=== PATIENT | female | born 2000 | race Caucasian/White ===

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

== ENCOUNTER 2021-04-09 08:41 | Emergency (ER) | payer OTHER ==
--- OUTSIDE RECORDS SUMMARY | 2021-04-09 08:47 | XMS REPORT | Continuity of Care Document ---
:2001 Author Organization [facility] Address [facility] [place] [address] Care Team Providers Name Role Phone ONIEL Attending Clinician Unavailable Provider, Urgent Care Attending Clinician Unavailable Ernie BHATT Attending Clinician ERNIE Attending Clinician Unavailable Doctor Unassigned, Name Attending Clinician Unavailable Dian Coe MD Attending Clinician Dian COE Attending Clinician Unavailable PARISH FAGAN Attending Clinician Unavailable Oniel MONTALVO Attending Clinician Parish Fagan MD Attending Clinician Pob, Lab Main Attending Clinician Unavailable 2, Lab Attending Clinician Unavailable Edwige ROBERTO, M Attending Clinician Unavailable Pcp, Does Not Have A Attending Clinician Nasir FRANCO Attending Clinician Maravilla Attending Clinician Nurse, Women's Health Attending Clinician Unavailable Payers Payer Name Policy Type Policy Number Effective Date Expiration Date Juan A [employer] [id number] 2014 HEALTH 00:00:00 Problems Condition Condition Condition Status Onset Resolution Last Treating Co mments Source Name Details Category Date Date Treatment Clinician Date High-risk High-risk Disease Active Uni vers 4-15 ity of in first in first 00:00: [place] trimester trimester 00 Medi mtat Branch 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 [place] Medical disorder disorder Branch (ADHD), (ADHD), 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 9-13 it y of disorder disorder 00:00: [place] with with 00 Medical single single Branch episode, episode, in full in full remission remission Obstructiv Obstructiv Disease Active U nivers e sleep e sleep 7-15 ity of apnea apnea 00:00: [place] (adult) (adult) 00 Medical (pediatric (pediatric Br anch ) ) Primary Primary Disease Active Univers central central 7-15 ity of sleep sleep 00:00: [place] apnea apnea 00 Medical Branch Sleep Sleep Disease Active 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 00:00: [address] Branch Allergies, Adverse Reactions, Alerts Allergy Allergy Status Severity Reaction(s) Onset Inactive Treating Comm ents Source Name Type Date Date Clinician NO KNOWN Drug Active Univers ALLERGIE Class ity of S [facility] Social History Social Habit Start Date Stop Date Quantity Comments Source ASSERTION 2019-07-01 University of 00:00:00 [facility] Exposure to Not sure [facility] SARS-CoV-2 [facility] (event) [place] [facility] [place] [facility] Tobacco use and 2020-04-28 2020-04-28 Never used Universit y of exposure 00:00:00 00:00:00 [facility] Alcohol intake 2020-04-28 2020-04-28 Current [place] of 00:00:00 00:00:00 non-drinker of [facility] alcohol Branch (finding) Alcohol Comment 2017-03-12 2017-03-12 hx of alcohol Univer sity of 00:00:00 00:00:00 use. [facility] Smoking Status Start Date Stop Date Source Never smoker [facility] Former smoker 2019-08-06 00:00:00 2019-08-06 00:00:00 Universi ty of [facility] Medications Ordered Filled Start Stop Current Ordering Indication Dosage Frequency Signature Comments Components Source Medication Medication Date Date Medication? Clinician (SIG) Name Name Nitrofurant 2019-05 2020- No [id number] 100mg Take 1 Univers oin&Nit. 205-04 capsule by ity of [place] 00:00: 05:59 mouth 2 Dharmesh as (MACROBID) 00 :00 (two) Medical 100 mg times Branch capsule daily for 5 days. fluconazole 2020- No [id number] 150mg Take 1 Univers 150 mg 01-19- tablet by ity of tablet 00:00[place] 04[place] for 1 Medical dose. Branch fluconazole 2019-0 2020- No [id number] 150mg Take 1 Univers 150 mg 01-19 tablet by ity of tablet 00:00: 04:59 [place] 00 :[place] now for 1 Medical dose. Branch TRI-SPRINTE 2019-0 Yes Univer s C 9-04 ity of 0.18/0.215/ 00:00: [place] 0.25 mg-35 00 Medical mcg (28) Branch per tablet TRI-SPRINTE 2019-0 Yes Univer s C 9-04 ity of 0.18/0.215/ 00:00: [place] 0.25 mg-35 00 Medical mcg (28) Branch per tablet TRI-SPRINTE 2019-0 Yes Univer s C 9-04 ity of 0.18/0.215/ 00:00: [place] 0.25 mg-35 00 Medical mcg (28) Branch per tablet TRI-SPRINTE 2019-0 Yes Univer s C 9-04 ity of 0.18/0.215/ 00:00: [place] 0.25 mg-35 00 Medical mcg (28) Branch per tablet TRI-SPRINTE 2020-0 Yes Univer s C 9-04 ity of 0.18/0.215/ 00:00: [place] 0.25 mg-35 00 Medical mcg (28) Branch per tablet TRI-SPRINTE 2019-0 Yes Univer s C 9-04 ity of 0.18/0.215/ 00:00: [place] 0.25 mg-35 00 Medical mcg (28) Branch per tablet metroNIDAZO 2019-0 Yes [id number] 500mg Take 1 Univers LE 500 mg 4-16 tablet by ity o f tablet 00:00: mouth [place] 00 every 12 Medical (twelve) Branch hours. metroNIDAZO 2020-0 Yes [id number] 500mg Take 1 Univers LE 500 mg 4-16 tablet by ity o f tablet 00:00: mouth [place] 00 every 12 Medical (twelve) Branch hours. metroNIDAZO 2020-0 Yes [id number] 500mg Take 1 Univers LE 500 mg 4-16 tablet by ity o f tablet 00:00: mouth [place] 00 every 12 Medical (twelve) Branch hours. metroNIDAZO 2019-0 Yes [id number] 500mg Take 1 Univers LE 500 mg 4-16 tablet by ity o f tablet 00:00: mouth [place] 00 every 12 Medical (twelve) Branch hours. metroNIDAZO 2020-0 Yes [id number] 500mg Take 1 Univers LE 500 mg 4-16 tablet by ity o f tablet 00:00: mouth [place] 00 every 12 Medical (twelve) Branch hours. metroNIDAZO 2020-0 Yes [id number] 500mg Take 1 Univers LE 500 mg 4-16 tablet by ity o f tablet 00:00: mouth [place] 00 every 12 Medical (twelve) Branch hours. metroNIDAZO 2020-0 Yes [id number] 500mg Take 1 Univers LE 500 mg 4-16 tablet by ity o f tablet 00:00: mouth [place] 00 every 12 Medical (twelve) Branch hours. metroNIDAZO 2020-0 Yes [id number] 500mg Take 1 Univers LE 500 mg 4-16 tablet by ity o f tablet 00:00: mouth [place] 00 every 12 Medical (twelve) Branch hours. metroNIDAZO 2020-0 Yes [id number] 500mg Take 1 Univers LE 500 mg 4-16 tablet by ity o f tablet 00:00: mouth [place] 00 every 12 Medical (twelve) Branch hours. metroNIDAZO 2020-0 Yes [id number] 500mg Take 1 Univers LE 500 mg 4-16 tablet by ity o f tablet 00:00: mouth [place] 00 every 12 Medical (twelve) Branch hours. albuterol 2019-0 Yes [id number] 2{puff} Inhale 2 Univers 90 4-15 Puffs ity of mcg/actuati 00:00: every 6 Dharmesh as on inhaler 00 (six) Medical hours as Branch needed for Wheezing, Shortness of Breath, Bronchospa sm or Chest tightness. PNV 2019-0 Yes [id number] Take 1 Univers 102-iron-fo 4-15 TAB-CAP/M2 it y of late 00:00: by mouth [place] 1-dss-dha 00 daily. Medical (VITAFOL Branch FE+, WITH DOCUSATE,) 90 mg iron-1 mg -50 mg-200 mg Cap albuterol 2019-0 Yes [id number] 2{puff} Inhale 2 Univers 90 4-15 Puffs ity of mcg/actuati 00:00: every 6 Dharmesh as on inhaler 00 (six) Medical hours as Branch needed for Wheezing, Shortness of Breath, Bronchospa sm or Chest tightness. PNV 2020-0 Yes [id number] Take 1 Univers 102-iron-fo 4-15 TAB-CAP/M2 it y of late 00:00: by mouth [address] daily. Medical (VITAFOL Branch FE+, WITH DOCUSATE,) 90 mg iron-1 mg -50 mg-200 mg Cap albuterol 2020-0 Yes [id number] 2{puff} Inhale 2 Univers 90 4-15 Puffs ity of mcg/actuati 00:00: every 6 Dharmesh as on inhaler 00 (six) Medical hours as Branch needed for Wheezing, Shortness of Breath, Bronchospa sm or Chest tightness. PNV 2020-0 Yes [id number] Take 1 Univers 102-iron-fo 4-15 TAB-CAP/M2 it y of late 00:00: by mouth [address] daily. Medical (VITAFOL Branch FE+, WITH DOCUSATE,) 90 mg iron-1 mg -50 mg-200 mg Cap albuterol 2020-0 Yes [id number] 2{puff} Inhale 2 Univers 90 4-15 Puffs ity of mcg/actuati 00:00: every 6 Dharmesh as on inhaler 00 (six) Medical hours as Branch needed for Wheezing, Shortness of Breath, Bronchospa sm or Chest tightness. PNV 2020-0 Yes [id number] Take 1 Univers 102-iron-fo 4-15 TAB-CAP/M2 it y of late 00:00: by mouth [address] daily. Medical (VITAFOL Branch FE+, WITH DOCUSATE,) 90 mg iron-1 mg -50 mg-200 mg Cap albuterol 2020-0 Yes [id number] 2{puff} Inhale 2 Univers 90 4-15 Puffs ity of mcg/actuati 00:00: every 6 Dharmesh as on inhaler 00 (six) Medical hours as Branch needed for Wheezing, Shortness of Breath, Bronchospa sm or Chest tightness. PNV 2020-0 Yes [id number] Take 1 Univers 102-iron-fo 4-15 TAB-CAP/M2 it y of late 00:00: by mouth [address] daily. Medical (VITAFOL Branch FE+, WITH DOCUSATE,) 90 mg iron-1 mg -50 mg-200 mg Cap albuterol 2020-0 Yes [id number] 2{puff} Inhale 2 Univers 90 4-15 Puffs ity of mcg/actuati 00:00: every 6 Dharmesh as on inhaler 00 (six) Medical hours as Branch needed for Wheezing, Shortness of Breath, Bronchospa sm or Chest tightness. PNV 2020-0 Yes [id number] Take 1 Univers 102-iron-fo 4-15 TAB-CAP/M2 it y of late 00:00: by mouth [address] daily. Medical (VITAFOL Branch FE+, WITH DOCUSATE,) 90 mg iron-1 mg -50 mg-200 mg Cap albuterol 2020-0 Yes [id number] 2{puff} Inhale 2 Univers 90 4-15 Puffs ity of mcg/actuati 00:00: every 6 Dharmesh as on inhaler 00 (six) Medical hours as Branch needed for Wheezing, Shortness of Breath, Bronchospa sm or Chest tightness. PNV 2020-0 Yes [id number] Take 1 Univers 102-iron-fo 4-15 TAB-CAP/M2 it y of late 00:00: by mouth [address] daily. Medical (VITAFOL Branch FE+, WITH DOCUSATE,) 90 mg iron-1 mg -50 mg-200 mg Cap albuterol 2020-0 Yes [id number] 2{puff} Inhale 2 Univers 90 4-15 Puffs ity of mcg/actuati 00:00: every 6 Dharmesh as on inhaler 00 (six) Medical hours as Branch needed for Wheezing, Shortness of Breath, Bronchospa sm or Chest tightness. PNV 2020-0 Yes [id number] Take 1 Univers 102-iron-fo 4-15 TAB-CAP/M2 it y of late 00:00: by mouth [address] daily. Medical (VITAFOL Branch FE+, WITH DOCUSATE,) 90 mg iron-1 mg -50 mg-200 mg Cap albuterol 2020-0 Yes [id number] 2{puff} Inhale 2 Univers 90 4-15 Puffs ity of mcg/actuati 00:00: every 6 Dharmseh as on inhaler 00 (six) Medical hours as Branch needed for Wheezing, Shortness of Breath, Bronchospa sm or Chest tightness. PNV 2020-0 Yes [id number] Take 1 Univers 102-iron-fo 4-15 TAB-CAP/M2 it y of late 00:00: by mouth [address] daily. Medical (VITAFOL Branch FE+, WITH DOCUSATE,) 90 mg iron-1 mg -50 mg-200 mg Cap albuterol 2020-0 Yes [id number] 2{puff} Inhale 2 Univers 90 4-15 Puffs ity of mcg/actuati 00:00: every 6 Dharmesh as on inhaler 00 (six) Medical hours as Branch needed for Wheezing, Shortness of Breath, Bronchospa sm or Chest tightness. PNV 2020-0 Yes [id number] Take 1 Univers 102-iron-fo 4-15 TAB-CAP/M2 it y of late 00:00: by mouth [address] daily. Medical (VITAFOL Branch FE+, WITH DOCUSATE,) 90 mg iron-1 mg -50 mg-200 mg Cap albuterol 2020-0 Yes [id number] 2{puff} Inhale 2 Univers 90 4-15 Puffs ity of mcg/actuati 00:00: every 6 Dharmesh as on inhaler 00 (six) Medical hours as Branch needed for Wheezing, Shortness of Breath, Bronchospa sm or Chest tightness. PNV 2020-0 Yes [id number] Take 1 Univers 102-iron-fo 4-15 TAB-CAP/M2 it y of late 00:00: by mouth [address] daily. Medical (VITAFOL Branch FE+, WITH DOCUSATE,) 90 mg iron-1 mg -50 mg-200 mg Cap albuterol 2020-0 Yes [id number] 2{puff} Inhale 2 Univers 90 4-15 Puffs ity of mcg/actuati 00:00: every 6 Dharmesh as on inhaler 00 (six) Medical hours as Branch needed for Wheezing, Shortness of Breath, Bronchospa sm or Chest tightness. PNV 2020-0 Yes [id number] Take 1 Univers 102-iron-fo 4-15 TAB-CAP/M2 it y of late 00:00: by mouth [address] daily. Medical (VITAFOL Branch FE+, WITH DOCUSATE,) 90 mg iron-1 mg -50 mg-200 mg Cap cefdinir 2019-0 2020- No [id number] 300mg Take 1 U nivers 300 mg 3-25 04-05 capsule by ity of capsule 00:00: 04:59 mouth [place] 00 :00 every 24 Medical ([facility] Branch ur) hours for 10 days. cefdinir 2020-0 2020- No [id number] 300mg Take 1 U nivers 300 mg 3-25 04-05 capsule by ity of capsule 00:00: 04:59 mouth [place] 00 :00 every 24 Medical ([facility] Branch ur) hours for 10 days. cefdinir 2019-0 2020- No [id number] 300mg Take 1 U nivers 300 mg 3-25 04-05 capsule by ity of capsule 00:00: 04:59 mouth [place] 00 :00 every 24 Medical ([facility] Branch ur) hours for 10 days. cefdinir 2020-0 2020- No [id number] 300mg Take 1 U nivers 300 mg 3-25 04-05 capsule by ity of capsule 00:00: 04:59 mouth [place] 00 :00 every 24 Medical ([facility] Branch ur) hours for 10 days. cefdinir 2019-0 2020- No [id number] 300mg Take 1 U nivers 300 mg 3-25 04-05 capsule by ity of capsule 00:00: 04:59 mouth [place] 00 :00 every 24 Medical ([facility] Branch ur) hours for 10 days. cefdinir 2020-0 2020- No [id number] 300mg Take 1 U nivers 300 mg 3-25 04-05 capsule by ity of capsule 00:00: 04:59 mouth [place] 00 :00 every 24 Medical ([facility] Branch ur) hours for 10 days. cefdinir 2020-0 2020- No [id number] 300mg Take 1 U nivers 300 mg 3-25 04-05 capsule by ity of capsule 00:00: 04:59 mouth [place] 00 :00 every 24 Medical ([facility] Branch ur) hours for 10 days. estradiol 2019-0 Yes by Univers cypionate 8-09 Intramuscu ity of (DEPO-ESTRA 13:05: lar route. [place] DIOL IM) [address] [place] [address] Branch estradiol 2019-0 Yes by Univers cypionate 8-09 Intramuscu ity of (DEPO-ESTRA 13:05: lar route. [place] DIOL IM) 52 Medical Branch estradiol 2019-0 Yes by Univers cypionate 8-09 Intramuscu ity of (DEPO-ESTRA 13:05: lar route. [place] DIOL IM) 52 Medical Branch estradiol 2019-0 Yes by Univers cypionate 8-09 Intramuscu ity of (DEPO-ESTRA 13:05: lar route. [place] DIOL IM) 52 Medical Branch estradiol 2019-0 Yes by Univers cypionate 8-09 Intramuscu ity of (DEPO-ESTRA 13:05: lar route. [place] DIOL IM) 52 Medical Branch estradiol 2019-0 Yes by Univers cypionate 8-09 Intramuscu ity of (DEPO-ESTRA 13:05: lar route. [place] DIOL IM) 52 Medical Branch estradiol 2019-0 Yes by Univers cypionate 8-09 Intramuscu ity of (DEPO-ESTRA 13:05: lar route. [place] DIOL IM) 52 Medical Branch estradiol 2019-0 Yes by Univers cypionate 8-09 Intramuscu ity of (DEPO-ESTRA 13:05: lar route. [place] DIOL IM) 52 Medical Branch estradiol 2019-0 Yes by Univers cypionate 8-09 Intramuscu ity of (DEPO-ESTRA 13:05: lar route. [place] DIOL IM) 52 Medical Branch estradiol 2019-0 Yes by Univers cypionate 8-09 Intramuscu ity of (DEPO-ESTRA 13:05: lar route. [place] DIOL IM) 52 Medical Branch estradiol 2019-0 Yes by Univers cypionate 8-09 Intramuscu ity of (DEPO-ESTRA 13:05: lar route. [place] DIOL IM) 52 Medical Branch estradiol 2019-0 Yes by Univers cypionate 8-09 Intramuscu ity of (DEPO-ESTRA 13:05: lar route. [place] DIOL IM) 52 Medical Branch estradiol 2019-0 Yes by Univers cypionate 8-09 Intramuscu ity of (DEPO-ESTRA 13:05: lar route. [place] DIOL IM) 52 Medical Branch estradiol 2019-0 Yes by Univers cypionate 8-09 Intramuscu ity of (DEPO-ESTRA 13:05: lar route. [place] DIOL IM) 52 Medical Branch estradiol 2019-0 Yes by Univers cypionate 8-09 Intramuscu ity of (DEPO-ESTRA 13:05: lar route. [place] DIOL IM) 52 Medical Branch estradiol 2019-0 Yes by Univers cypionate 8-09 Intramuscu ity of (DEPO-ESTRA 13:05: lar route. [place] DIOL IM) 52 Medical Branch estradiol 2019-0 Yes by Univers cypionate 8-09 Intramuscu ity of (DEPO-ESTRA 13:05: lar route. [place] DIOL IM) 52 Medical Branch estradiol 2019-0 Yes by Univers cypionate 8-09 Intramuscu ity of (DEPO-ESTRA 13:05: lar route. [place] DIOL IM) 52 Medical Branch estradiol 2019-0 Yes by Univers cypionate 8-09 Intramuscu ity of (DEPO-ESTRA 13:05: lar route. [place] DIOL IM) 52 Medical Branch estradiol 2019-0 Yes by Univers cypionate 8-09 Intramuscu ity of (DEPO-ESTRA 13:05: lar route. [place] DIOL IM) 52 Medical Branch estradiol 2019-0 Yes by Univers cypionate 8-09 Intramuscu ity of (DEPO-ESTRA 13:05: lar route. [place] DIOL IM) 52 Medical Branch estradiol 2019-0 Yes by Univers cypionate 8-09 Intramuscu ity of (DEPO-ESTRA 13:05: lar route. [place] DIOL IM) 52 Medical Branch estradiol 2019-0 Yes by Univers cypionate 8-09 Intramuscu ity of (DEPO-ESTRA 13:05: lar route. [place] DIOL IM) 52 Medical Branch estradiol 2019-0 Yes by Univers cypionate 8-09 Intramuscu ity of (DEPO-ESTRA 13:05: lar route. [place] DIOL IM) 52 Medical Branch estradiol 2019-0 Yes by Univers cypionate 8-09 Intramuscu ity of (DEPO-ESTRA 13:05: lar route. [place] DIOL IM) 52 Medical Branch estradiol 2019-0 Yes by Univers cypionate 8-09 Intramuscu ity of (DEPO-ESTRA 13:05: lar route. [place] DIOL IM) 52 Medical Branch estradiol 2019-0 Yes by Univers cypionate 8-09 Intramuscu ity of (DEPO-ESTRA 13:05: lar route. [place] DIOL IM) 52 Medical Branch estradiol 2019-0 Yes by Univers cypionate 8-09 Intramuscu ity of (DEPO-ESTRA 13:05: lar route. [place] DIOL IM) 52 Medical Branch estradiol 2019-0 Yes by Univers cypionate 8-09 Intramuscu ity of (DEPO-ESTRA 13:05: lar route. [place] DIOL IM) 52 Medical Branch estradiol Yes by Univers cypionate 8-09 Intramuscu ity of (DEPO-ESTRA 13:05: lar route. [place] DIOL IM) 52 Medical Branch estradiol Yes by Univers cypionate 8-09 Intramuscu ity of (DEPO-ESTRA 13:05: lar route. [place] DIOL IM) 52 Medical Branch estradiol Yes by Univers cypionate 809 Intramuscu ity of (DEPO-ESTRA 13:05: lar route. [place] DIOL IM) 52 Medical Branch medroxyPROG 2020- No 150mg Univ ers ESTERone -09 11- ity of (DEPO-PROVE 15:45: 15:44 [place] RA) 00 :00 Medical injection Branch 150 mg medroxyPROG 2020- No 150mg Univ ers ESTERone -09 11- ity of (DEPO-PROVE 15:45: 15:44 [place] RA) 00 :00 Medical injection Branch 150 mg medroxyPROG 2020- No 150mg Univ ers ESTERone -09 11- ity of (DEPO-PROVE 15:45: 15:44 [place] RA) 00 :00 Medical injection Branch 150 mg medroxyPROG 2018-0 2020- No 150mg Univ ers ESTERone -09 11- ity of (DEPO-PROVE 15:45: 15:44 [place] RA) 00 :00 Medical injection Branch 150 mg medroxyPROG 2018- 2020- No 150mg Univ ers ESTERone -09 11- ity of (DEPO-PROVE 15:45: 15:44 [place] RA) 00 :00 Medical injection Branch 150 mg medroxyPROG 2018-0 2020- No 150mg Univ ers ESTERone -09 11- ity of (DEPO-PROVE 15:45: 15:44 [place] RA) 00 :00 Medical injection Branch 150 mg medroxyPROG 2018-0 2020- No 150mg Univ ers ESTERone -09 11- ity of (DEPO-PROVE 15:45: 15:44 [place] RA) 00 :00 Medical injection Branch 150 mg medroxyPROG 2018-0 2020- No 150mg Univ ers ESTERone 12-09 ity of (DEPO-PROVE 15:45: 15:44 [place] RA) 00 :00 Medical injection Branch 150 mg medroxyPROG 2018- 2020- No 150mg Univ ers ESTERone 12-09 ity of (DEPO-PROVE 15:45: 15:44 [place] RA) 00 :00 Medical injection Branch 150 mg medroxyPROG 2018- 2020- No 150mg Univ ers ESTERone 12-09 ity of (DEPO-PROVE 15:45: 15:44 [place] RA) 00 :00 Medical injection Branch 150 mg medroxyPROG 2018- 2020- No 150mg Univ ers ESTERone 12-09 ity of (DEPO-PROVE 15:45: 15:44 [place] RA) 00 :00 Medical injection Branch 150 mg medroxyPROG 2018-2019- No 150mg 150 mg, U nivers ESTERone 12-09 Intramuscu ity of (DEPO-PROVE 15:45: 15:44 lar, [place] RA) 00 :00 [id number], Medical injection 4 doses, Branch 150 mg First dose on Sun12/09/18 at 1045, Last dose on Sun08/18/19 at 1045, Routine medroxyPROG 2018-2019- No 150mg Univ ers ESTERone 12-09 ity of (DEPO-PROVE 15:45: 15:44 [place] RA) 00 :00 Medical injection Branch 150 mg medroxyPROG 2018-0 2020- No 150mg Univ ers ESTERone 12-09 ity of (DEPO-PROVE 15:45: 15:44 [place] RA) 00 :00 Medical injection Branch 150 mg medroxyPROG 2018-0 2020- No 150mg Univ ers ESTERone 12-09 ity of (DEPO-PROVE 15:45: 15:44 [place] RA) 00 :00 Medical injection Branch 150 mg medroxyPROG 2018-0 2020- No 150mg Univ ers ESTERone 12-09 ity of (DEPO-PROVE 15:45: 15:44 [place] RA) 00 :00 Medical injection Branch 150 mg medroxyPROG 2018-0 2020- No 150mg Univ ers ESTERone 12-09 ity of (DEPO-PROVE 15:45: 15:44 [place] RA) 00 :00 Medical injection Branch 150 mg medroxyPROG 2018-0 2020- No 150mg Univ ers ESTERone 12-09 ity of (DEPO-PROVE 15:45: 15:44 [place] RA) 00 :00 Medical injection Branch 150 mg medroxyPROG 2018-0 2020- No 150mg Univ ers ESTERone 12-09 ity of (DEPO-PROVE 15:45: 15:44 [place] RA) 00 :00 Medical injection Branch 150 mg medroxyPROG 2018-0 2020- No 150mg Univ ers ESTERone 12-09 ity of (DEPO-PROVE 15:45: 15:44 [place] RA) 00 :00 Medical injection Branch 150 mg medroxyPROG 2018-0 2020- No 150mg Univ ers ESTERone 12-09 ity of (DEPO-PROVE 15:45: 15:44 [place] RA) 00 :00 Medical injection Branch 150 mg medroxyPROG 2018-0 2020- No 150mg Univ ers ESTERone 12-09 ity of (DEPO-PROVE 15:45: 15:44 [place] RA) 00 :00 Medical injection Branch 150 mg medroxyPROG 2018-0 2020- No 150mg Univ ers ESTERone 12-09 ity of (DEPO-PROVE 15:45: 15:44 [place] RA) 00 :00 Medical injection Branch 150 mg medroxyPROG 2018-0 2020- No 150mg Univ ers ESTERone 12-09 ity of (DEPO-PROVE 15:45: 15:44 [place] RA) 00 :00 Medical injection Branch 150 mg medroxyPROG 2018-0 2020- No 150mg Univ ers ESTERone 12-09 ity of (DEPO-PROVE 15:45: 15:44 [place] RA) 00 :00 Medical injection Branch 150 mg medroxyPROG 2018-0 2020- No 150mg Univ ers ESTERone 12-09 ity of (DEPO-PROVE 15:45: 15:44 [place] RA) 00 :00 Medical injection Branch 150 mg medroxyPROG 2018-0 2020- No 150mg Univ ers ESTERone 12-09 ity of (DEPO-PROVE 15:45: 15:44 [place] RA) 00 :00 Medical injection Branch 150 mg medroxyPROG 2018-0 2020- No 150mg Univ ers ESTERone 12-09 ity of (DEPO-PROVE 15:45: 15:44 [place] RA) 00 :00 Medical injection Branch 150 mg medroxyPROG 2019- 2020- No 150mg Univ ers ESTERone 12-09 ity of (DEPO-PROVE 15:45: 15:44 [place] RA) 00 :00 Medical injection Branch 150 mg estradiol 2019- Yes by Univers cypionate 2-01 Intramuscu ity of (DEPO-ESTRA 17:16: lar route. [place] DIOL IM) 35 Medical Branch estradiol 2019 Yes by Univers cypionate 2-01 Intramuscu ity of (DEPO-ESTRA 17:16: lar route. [place] DIOL IM) 35 Medical Branch estradiol 2018- Yes by Univers cypionate 2-01 Intramuscu ity of (DEPO-ESTRA 17:16: lar route. [place] DIOL IM) Medical Branch Immunizations Ordered Immunization Filled Date Status Comments Sour ce Name Immunization Name HPV 2014-10-26 Completed University of 00:00:00 [facility] HPV 2014-10-26 Completed University of 00:00:00 [place] [facility] HPV 2014-10-26 Completed University of 00:00:00 [place] [facility] HPV 2014-10-26 Completed University of 00:00:00 [place] [facility] HPV 2014-10-26 Completed University of 00:00:00 [place] [facility] HPV 2014-10-26 Completed University of 00:00:00 [place] [facility] HPV 2013-12-24 Completed University of 00:00:00 [facility] Branch HPV 2013-12-24 Completed University of 00:00:00 [place] [facility] HPV 2013-12-24 Completed University of 00:00:00 [place] [facility] HPV 2013-12-24 Completed University of 00:00:00 [place] [facility] HPV 2013-12-24 Completed University of 00:00:00 [place] [facility] HPV 2013-12-24 Completed University of 00:00:00 [place] [facility] HPV 2013-10-23 Completed University of 00:00:00 [place] [facility] HPV 2013-10-23 Completed University of 00:00:00 [place] [facility] HPV 2013-10-23 Completed University of 00:00:00 [place] [facility] HPV 2013-10-23 Completed University of 00:00:00 [place] [facility] HPV 2013-10-23 Completed University of 00:00:00 [place] [facility] HPV 2013-10-23 Completed University of 00:00:00 [facility] Meningococcal 2012-09-19 Completed University of Polysaccharide (groups 00:00:00 [place] [facility] A, C, Y and W-135) Branch conjugate vaccine (MCV4P) TDAP 2012-09-19 Completed University of 00:00:00 [facility] Meningococcal 2012-09-19 Completed University of Polysaccharide (groups 00:00:00 [place] [facility] A, C, Y and W-135) Branch conjugate vaccine (MCV4P) TDAP 2012-09-19 Completed University of 00:00:00 [facility] Meningococcal 2012-09-19 Completed University of Polysaccharide (groups 00:00:00 [place] [facility] A, C, Y and W-135) Branch conjugate vaccine (MCV4P) TDAP 2012-09-19 Completed University of 00:00:00 [facility] Meningococcal 2012-09-19 Completed University of Polysaccharide (groups 00:00:00 [place] [facility] A, C, Y and W-135) Branch conjugate vaccine (MCV4P) TDAP 2012-09-19 Completed University of 00:00:00 [facility] Meningococcal 2012-09-19 Completed [facility] Polysaccharide (groups 00:00:00 [facility], C, Y and W-135) Branch conjugate vaccine (MCV4P) TDAP 2012-09-19 Completed University of 00:00:00 [facility] Meningococcal 2012-09-19 Completed [facility] of Polysaccharide (groups 00:00:00 [facility], C, Y and W-135) Branch conjugate vaccine (MCV4P) TDAP 2012-09-19 Completed University of 00:00:00 [facility] Influenza Virus 2012-04-02 Completed Universit y of Vaccine (3+ yrs) 00:00:00 [facility] Influenza Virus 2012-04-02 Completed Universit y of Vaccine (3+ yrs) 00:00:00 [facility] Influenza Virus 2012-04-02 Completed Universit y of Vaccine (3+ yrs) 00:00:00 [facility] Influenza Virus 2012-04-02 Completed Universit y of Vaccine (3+ yrs) 00:00:00 [facility] Influenza Virus 2012-04-02 Completed Universit y of Vaccine (3+ yrs) 00:00:00 [facility] Influenza Virus 2012-04-02 Completed Universit y of Vaccine (3+ yrs) 00:00:00 [facility] Influenza Virus 2011-05-03 Completed Universit y of Vaccine (3+ yrs) 00:00:00 [facility] Influenza Virus 2011-05-03 Completed Universit y of Vaccine (3+ yrs) 00:00:00 [facility] Influenza Virus 2011-05-03 Completed Universit y of Vaccine (3+ yrs) 00:00:00 [facility] Influenza Virus 2011-05-03 Completed Universit y of Vaccine (3+ yrs) 00:00:00 [facility] Influenza Virus 2011-05-03 Completed Universit y of Vaccine (3+ yrs) 00:00:00 [facility] Influenza Virus 2011-05-03 Completed Universit y of Vaccine (3+ yrs) 00:00:00 [facility] Influenza Virus 2010-02-18 Completed Universit y of Vaccine (3+ yrs) 00:00:00 [facility] Influenza Virus 2010-02-18 Completed Universit y of Vaccine (3+ yrs) 00:00:00 [facility] Influenza Virus 2010-02-18 Completed Universit y of Vaccine (3+ yrs) 00:00:00 [facility] Influenza Virus 2010-02-18 Completed Universit y of Vaccine (3+ yrs) 00:00:00 [facility] Influenza Virus 2010-02-18 Completed Universit y of Vaccine (3+ yrs) 00:00:00 [facility] Influenza Virus 2010-02-18 Completed Universit y of Vaccine (3+ yrs) 00:00:00 [facility] Investigational H1N1 2009-06-19 Completed Univ ersity of Influenza VACCINE 00:00:00 [facility] Investigational H1N1 2009-06-19 Completed Univ ersity of Influenza VACCINE 00:00:00 [facility] Investigational H1N1 2009-06-19 Completed Univ ersity of Influenza VACCINE 00:00:00 [facility] Investigational H1N1 2009-06-19 Completed Univ ersity of Influenza VACCINE 00:00:00 [facility] Investigational H1N1 2009-06-19 Completed Univ ersity of Influenza VACCINE 00:00:00 [facility] Investigational H1N1 2009-06-19 Completed Univ ersity of Influenza VACCINE 00:00:00 [facility] Investigational H1N1 2009-04-29 Completed Univ ersity of Influenza VACCINE 00:00:00 [facility] Investigational H1N1 2009-04-29 Completed Univ ersity of Influenza VACCINE 00:00:00 [facility] Investigational H1N1 2009-04-29 Completed Univ ersity of Influenza VACCINE 00:00:00 [facility] Investigational H1N1 2009-04-29 Completed Univ ersity of Influenza VACCINE 00:00:00 [facility] Investigational H1N1 2009-04-29 Completed Univ ersity of Influenza VACCINE 00:00:00 [facility] Investigational H1N1 2009-04-29 Completed Univ ersity of Influenza VACCINE 00:00:00 [facility] HEPATITIS A 2005-10-02 Completed University of 00:00:00 [facility] DTAP 2005-10-02 Completed University of 00:00:00 [facility] IPV 2005-10-02 Completed University of 00:00:00 [facility] MMR 2005-10-02 Completed University of 00:00:00 [facility] Varicella 2005-10-02 Completed University of (varivax)(chicken pox) 00:00:[address] [facility] [place] [place] HEPATITIS A 2005-10-02 Completed University of 00:00:00 [facility] DTAP 2005-10-02 Completed University of 00:00:00 [facility] IPV 2005-10-02 Completed University of 00:00:00 [facility] MMR 2005-10-02 Completed University of 00:00:00 [facility] Varicella 2005-10-02 Completed University of (varivax)(chicken pox) 00:00:[address] [facility] [place] [place] HEPATITIS A 2005-10-02 Completed University of 00:00:00 [facility] DTAP 2005-10-02 Completed University of 00:00:00 [facility] IPV 2005-10-02 Completed University of 00:00:00 [facility] MMR 2005-10-02 Completed University of 00:00:00 [facility] Varicella 2005-10-02 Completed University of (varivax)(chicken pox) 00:00:[address] [facility] [place] [place] HEPATITIS A 2005-10-02 Completed University of 00:00:00 [facility] DTAP 2005-10-02 Completed University of 00:00:00 [facility] IPV 2005-10-02 Completed University of 00:00:00 [facility] MMR 2005-10-02 Completed University of 00:00:00 [facility] Varicella 2005-10-02 Completed University of (varivax)(chicken pox) 00:00:[address] [facility] [place] [place] HEPATITIS A 2005-10-02 Completed University of 00:00:00 [facility] DTAP 2005-10-02 Completed University of 00:00:00 [facility] IPV 2005-10-02 Completed University of 00:00:00 [facility] MMR 2005-10-02 Completed University of 00:00:00 [facility] Varicella 2005-10-02 Completed University of (varivax)(chicken pox) 00:00:[address] [facility] [place] [place] HEPATITIS A 2005-10-02 Completed University of 00:00:00 [facility] DTAP 2005-10-02 Completed University of 00:00:00 [facility] IPV 2005-10-02 Completed University of 00:00:00 [facility] MMR 2005-10-02 Completed University of 00:00:00 [facility] Varicella 2005-10-02 Completed University of (varivax)(chicken pox) 00:00:[address] [facility] [place] [place] HEPATITIS A 2004-10-18 Completed University of 00:00:00 [facility] HEPATITIS A 2004-10-18 Completed University of 00:00:00 [facility] HEPATITIS A 2004-10-18 Completed University of 00:00:00 [facility] HEPATITIS A 2004-10-18 Completed University of 00:00:00 [facility] HEPATITIS A 2004-10-18 Completed University of 00:00:00 [facility] HEPATITIS A 2004-10-18 Completed University of 00:00:00 [facility] HEPATITIS A 2003-12-07 Completed University of 00:00:00 [facility] HEPATITIS A 2003-12-07 Completed University of 00:00:00 [facility] HEPATITIS A 2003-12-07 Completed University of 00:00:00 [facility] HEPATITIS A 2003-12-07 Completed University of 00:00:00 [facility] HEPATITIS A 2003-12-07 Completed University of 00:00:00 [facility] HEPATITIS A 2003-12-07 Completed University of 00:00:00 [facility] Influenza Virus 2003-04-22 Completed Universit y of Vaccine (3+ yrs) 00:00:00 [facility] Pneumococcal 7 2003-04-22 Completed University of Conjugate, PCV7 00:00:00 [facility] (Prevnar7) [facility] Influenza Virus 2003-04-22 Completed Universit y of Vaccine (3+ yrs) 00:00:00 [facility] Pneumococcal 7 2003-04-22 Completed University of Conjugate, PCV7 00:00:00 [facility] (Prevnar7) [facility] Influenza Virus 2003-04-22 Completed Universit y of Vaccine (3+ yrs) 00:00:00 [facility] Pneumococcal 7 2003-04-22 Completed University of Conjugate, PCV7 00:00:00 [facility] (Prevnar7) [facility] Influenza Virus 2003-04-22 Completed Universit y [facility] Vaccine (3+ yrs) 00:00[facility]00 [facility] 2003-04-22 Completed University of Conjugate, PCV7 00:00:00 [place] [facility] (Prevnar7) [facility] Influenza Virus 2003-04-22 Completed Universit y of Vaccine (3+ yrs) 00:00[facility]00 [facility] Pneum[facility] 7 2003-04-22 Completed University of Conjugate, PCV7 00:00:00 [facility] (Prevnar7) [facility] Influenza Virus 2003-04-22 Completed Universit y of Vaccine (3+ yrs) 00:00:00 [facility] Pneumococcal 7 2003-04-22 Completed University of Conjugate, PCV7 00:00:00 [facility] (Prevnar7) [facility] DTAP 2002-11-06 Completed University of 00:00:00 [facility] Pneumococcal 7 2002-11-06 Completed University of Conjugate, PCV7 00:00:00 [facility] (Prevnar7) [facility] DTAP 2002-11-06 Completed University of 00:00:00 [facility] Pneumococcal 7 2002-11-06 Completed University of Conjugate, PCV7 00:00:00 [facility] (Prevnar7) [facility] DTAP 2002-11-06 Completed University of 00:00:00 [facility] Pneumococcal 7 2002-11-06 Completed University of Conjugate, PCV7 00:00:00 [facility] (Prevnar7) [facility] DTAP 2002-11-06 Completed University of 00:00:00 [facility] Pneumococcal 7 2002-11-06 Completed University of Conjugate, PCV7 00:00:00 [facility] (Prevnar7) [facility] DTAP 2002-11-06 Completed University of 00:00:00 [facility] Pneumococcal 7 2002-11-06 Completed University of Conjugate, PCV7 00:00:00 [facility] (Prevnar7) [facility] DTAP 2002-11-06 Completed University of 00:00:00 [facility] Pneumococcal 7 2002-11-06 Completed University of Conjugate, PCV7 00:00:00 [place] [facility] (Prevnar7) [facility] HIB 4 Dose Schedule 2002-09-17 Completed Unive rsity of 00:00:00 [facility] IPV 2002-09-17 Completed University of 00:00:00 [facility] MMR 2002-09-17 Completed University of 00:00:00 [facility] Pneumococcal 7 2002-09-17 Completed University of Conjugate, PCV7 00:00:00 [place] [facility] (Prevnar7) [facility] Varicella 2002-09-17 Completed University of (varivax)(chicken pox) 00:00:[address] [facility] [place] [place] HIB 4 Dose Schedule 2002-09-17 Completed Unive rsity of 00:00:00 [facility] IPV 2002-09-17 Completed University of 00:00:00 [facility] MMR 2002-09-17 Completed University of 00:00:00 [facility] Pneumococcal 7 2002-09-17 Completed University of Conjugate, PCV7 00:00:00 [place] [facility] (Prevnar7) [facility] Varicella 2002-09-17 Completed University of (varivax)(chicken pox) 00:00:[address] [facility] [place] [place] HIB 4 Dose Schedule 2002-09-17 Completed Unive rsity of 00:00:00 [facility] IPV 2002-09-17 Completed University of 00:00:00 [facility] MMR 2002-09-17 Completed University of 00:00:00 [facility] Pneumococcal 7 2002-09-17 Completed University of Conjugate, PCV7 00:00:00 [place] [facility] (Prevnar7) [facility] Varicella 2002-09-17 Completed University of (varivax)(chicken pox) 00:00:[address] [facility] [place] [place] HIB 4 Dose Schedule 2002-09-17 Completed Unive rsity of 00:00:00 [facility] IPV 2002-09-17 Completed University of 00:00:00 [facility] MMR 2002-09-17 Completed University of 00:00:00 [facility] Pneumococcal 7 2002-09-17 Completed University of Conjugate, PCV7 00:00:00 [place] [facility] (Prevnar7) [facility] Varicella 2002-09-17 Completed University of (varivax)(chicken pox) 00:00:[address] [facility] [place] [place] HIB 4 Dose Schedule 2002-09-17 Completed Unive rsity of 00:00:00 [facility] IPV 2002-09-17 Completed University of 00:00:00 [facility] MMR 2002-09-17 Completed University of 00:00:00 [facility] Pneumococcal 7 2002-09-17 Completed University of Conjugate, PCV7 00:00:00 [place] [facility] (Prevnar7) [facility] Varicella 2002-09-17 Completed University of (varivax)(chicken pox) 00:00:00 [facility] HIB 4 Dose Schedule 2002-09-17 Completed Unive rsity of 00:00:00 [facility] IPV 2002-09-17 Completed University of 00:00:00 [facility] MMR 2002-09-17 Completed University of 00:00:00 [facility] Pneumococcal 7 2002-09-17 Completed University of Conjugate, PCV7 00:00:00 [place] [facility] (Prevnar7) [facility] Varicella 2002-09-17 Completed University of (varivax)(chicken pox) 00:00:[address] [facility] [place] [place] HIB 4 Dose Schedule 2002-03-19 Completed Unive rsity of 00:00:00 [facility] DTAP 2002-03-19 Completed University of 00:00:00 [facility] Hep B, Adol or Pedi 2002-03-19 Completed Unive rsity of Dosage 00:00:00 [facility] Pneumococcal 7 2002-03-19 Completed University of Conjugate, PCV7 00:00:00 [place] [facility] (Prevnar7) [facility] HIB 4 Dose Schedule 2002-03-19 Completed Unive rsity of 00:00:00 [facility] DTAP 2002-03-19 Completed University of 00:00:00 [facility] Hep B, Adol or Pedi 2002-03-19 Completed Unive rsity of Dosage 00:00:00 [facility] Pneumococcal 7 2002-03-19 Completed University of Conjugate, PCV7 00:00:00 [facility] (Prevnar7) [facility] HIB 4 Dose Schedule 2002-03-19 Completed Unive rsity of 00:00:00 [facility] DTAP 2002-03-19 Completed University of 00:00:00 [facility] Hep B, Adol or Pedi 2002-03-19 Completed Unive rsity of Dosage 00:00:00 [facility] Pneumococcal 7 2002-03-19 Completed University of Conjugate, PCV7 00:00:00 [facility] (Prevnar7) [facility] HIB 4 Dose Schedule 2002-03-19 Completed Unive rsity of 00:00:00 [facility] DTAP 2002-03-19 Completed University of 00:00:00 [facility] Hep B, Adol or Pedi 2002-03-19 Completed Unive rsity of Dosage 00:00:00 [facility] Pneumococcal 7 2002-03-19 Completed University of Conjugate, PCV7 00:00:00 [facility] (Prevnar7) [facility] HIB 4 Dose Schedule 2002-03-19 Completed Unive rsity of 00:00:00 [facility] DTAP 2002-03-19 Completed University of 00:00:00 [facility] Hep B, Adol or Pedi 2002-03-19 Completed Unive rsity of Dosage 00:00:00 [facility] Pneumococcal 7 2002-03-19 Completed University of Conjugate, PCV7 00:00:00 [facility] (Prevnar7) [facility] HIB 4 Dose Schedule 2002-03-19 Completed Unive rsity of 00:00:00 [facility] DTAP 2002-03-19 Completed University of 00:00:00 [facility] Hep B, Adol or Pedi 2002-03-19 Completed Unive rsity of Dosage 00:00:00 [facility] Pneumococcal 7 2002-03-19 Completed University of Conjugate, PCV7 00:00:00 [facility] (Prevnar7) [facility] HIB 4 Dose Schedule 2002-01-20 Completed Unive rsity of 00:00:00 [facility] DTAP 2002-01-20 Completed University of 00:00:00 [facility] IPV 2002-01-20 Completed University of 00:00:00 [facility] HIB 4 Dose Schedule 2002-01-20 Completed Unive rsity of 00:00:00 [facility] DTAP 2002-01-20 Completed University of 00:00:00 [facility] IPV 2002-01-20 Completed University of 00:00:00 [facility] HIB 4 Dose Schedule 2002-01-20 Completed Unive rsity of 00:00:00 [facility] DTAP 2002-01-20 Completed University of 00:00:00 [facility] IPV 2002-01-20 Completed University of 00:00:00 [facility] HIB 4 Dose Schedule 2002-01-20 Completed Unive rsity of 00:00:00 [facility] DTAP 2002-01-20 Completed University of 00:00:00 [facility] IPV 2002-01-20 Completed University of 00:00:00 [facility] HIB 4 Dose Schedule 2002-01-20 Completed Unive rsity of 00:00:00 [facility] DTAP 2002-01-20 Completed University of 00:00:00 [facility] IPV 2002-01-20 Completed University of 00:00:00 [facility] HIB 4 Dose Schedule 2002-01-20 Completed Unive rsity of 00:00:00 [facility] DTAP 2002-01-20 Completed University of 00:00:00 [facility] IPV 2002-01-20 Completed University of 00:00:00 [facility] HIB 4 Dose Schedule 2001 Completed Unive rsity of 00:00:00 [facility] DTAP 2001 Completed University of 00:00:00 [facility] Hep B, Adol or Pedi 2001 Completed Unive rsity of Dosage 00:00:00 [facility] IPV 2001 Completed University of 00:00:00 [facility] HIB 4 Dose Schedule 2001 Completed Unive rsity of 00:00:00 [facility] DTAP 2001 Completed University of 00:00:00 [facility] Hep B, Adol or Pedi 2001 Completed Unive rsity of Dosage 00:00:00 [facility] IPV 2001 Completed University of 00:00:00 [facility] HIB 4 Dose Schedule 2001 Completed Unive rsity of 00:00:00 [facility] DTAP 2001 Completed University of 00:00:00 [facility] Hep B, Adol or Pedi 2001 Completed Unive rsity of Dosage 00:00:00 [facility] IPV 2001 Completed University of 00:00:00 [facility] HIB 4 Dose Schedule 2001 Completed Unive rsity of 00:00:00 [facility] DTAP 2001 Completed University of 00:00:00 [facility] Hep B, Adol or Pedi 2001 Completed Unive rsity of Dosage 00:00:00 [facility] IPV 2001 Completed University of 00:00:00 [facility] HIB 4 Dose Schedule 2001 Completed Unive rsity of 00:00:00 [facility] DTAP 2001 Completed University of 00:00:00 [facility] Hep B, Adol or Pedi 2001 Completed Unive rsity of Dosage 00:00:00 [facility] IPV 2001 Completed University of 00:00:00 [facility] HIB 4 Dose Schedule 2001 Completed Unive rsity of 00:00:00 [facility] DTAP 2001 Completed University of 00:00:00 [facility] Hep B, Adol or Pedi 2001 Completed Unive rsity of Dosage 00:00:00 [facility] IPV 2001 Completed University of 00:00:00 [facility] Hep B, Adol or Pedi 2001 Completed Unive rsity of Dosage 00:00:00 [facility] Hep B, Adol or Pedi 2001 Completed Unive rsity of Dosage 00:00:00 [facility] Hep B, Adol or Pedi 2001 Completed Unive rsity of Dosage 00:00:00 [facility] Hep B, Adol or Pedi 2001 Completed Unive rsity of Dosage 00:00:00 [facility] Hep B, Adol or Pedi 2001 Completed Unive rsity of Dosage 00:00:00 [facility] Hep B, Adol or Pedi 2001 Completed Unive rsity of Dosage 00:00:00 [facility] Vital Signs Vital Name Observation Time Observation Value Comments Source Systolic blood 2020-04-28 16:40:00 114 mm[Hg] Univer sity of pressure [facility] Diastolic blood 2020-04-28 16:40:00 77 mm[Hg] Unive rsity of pressure [facility] Heart rate 2020-04-28 16:40:00 94 /min [facility]i [facility] Body temperature 2020-04-28 16:40:00 36.83 Sherly Univ ersity of [facility] Respiratory rate 2020-04-28 16:40:00 16 /min Univ ersity of [facility] Body height 2020-04-28 16:40:00 160 cm [facility]i ty [facility] Body weight 2020-04-28 16:40:00 58.968 kg [facility]i [facility] BMI 2020-04-28 16:40:00 23.03 kg/m2 [facility] Oxygen saturation in 2020-04-28 16:40:00 98 /min University of Arterial blood by [facility] matt Pulse oximetry Branch Systolic blood 2020-01-20 16:14:00 116 mm[Hg] Univer sity of pressure [facility] Diastolic blood 2020-01-20 16:14:00 73 mm[Hg] Unive rsity of pressure [facility] Heart rate 2020-01-20 16:14:00 76 /min [facility]i ty [facility] Body temperature 2020-01-20 16:14:00 36.44 Sherly Univ [facility] of [facility] Respiratory rate 2020-01-20 16:14:00 20 /min Univ ersity of [facility] Body height 2020-01-20 16:14:00 160.7 cm [facility] Body weight 2020-01-20 16:14:00 61.689 kg [facility] BMI 2020-01-20 16:14:00 23.90 kg/m2 [facility] Oxygen saturation in 2020-01-20 16:14:00 100 /min University of Arterial blood by [facility] Pulse oximetry Branch Systolic blood 2019-08-27 15:24:00 113 mm[Hg] Univer sity of pressure [facility] Diastolic blood 2019-08-27 15:24:00 78 mm[Hg] Unive rsity of pressure [facility] Heart rate 2019-08-27 15:24:00 108 /min [facility]i [facility] Body temperature 2019-08-27 15:24:00 36.89 Shrely Univ ers[facility] of [facility] Respiratory rate 2019-08-27 15:24:00 18 /min Univ ersity of [facility] Body height 2019-08-27 15:24:00 157.5 cm [facility] Body weight 2019-08-27 15:24:00 63.504 kg [facility] BMI 2019-08-27 15:24:00 25.61 kg/m2 [facility] Systolic blood 2019-08-06 15:32:00 113 mm[Hg] Univer sity of pressure [facility] Diastolic blood 2019-08-06 15:32:00 75 mm[Hg] Unive rsity of pressure [facility] Heart rate 2019-08-06 15:32:00 95 /min [facility] Body temperature 2019-08-06 15:32:00 37.17 Sherly [facility] Respiratory rate 2019-08-06 15:32:00 16 /min Univ ers[facility] of [facility] Body height 2019-08-06 15:32:00 157.5 cm [facility] Body weight 2019-08-06 15:32:00 63.957 kg [facility] BMI 2019-08-06 15:32:00 25.79 kg/m2 [facility] Oxygen saturation in 2019-08-06 15:32:00 99 /min University of Arterial blood by [facility] matt Pulse oximetry Branch Systolic blood 2018-12-20 13:05:00 102 mm[Hg] Univer sity of pressure [facility] Diastolic blood 2018-12-20 13:05:00 71 mm[Hg] Unive rsity of pressure [facility] Heart rate 2018-12-20 13:05:00 90 /min [facility] Body temperature 2018-12-20 13:05:00 36.61 Sherly [facility] Respiratory rate 2018-12-20 13:05:00 18 /min Univ ers[facility] of [facility] Body weight 2018-12-20 13:05:00 58.174 kg [facility]i [facility] Oxygen saturation in 2018-12-20 13:05:00 100 /min University of Arterial blood by [place] [employer] matt Pulse oximetry Branch Systolic blood 2018-12-09 15:40:00 108 mm[Hg] Univer sity of pressure [facility] Diastolic blood 2018-12-09 15:40:00 70 mm[Hg] Unive rsity of pressure [facility] Heart rate 2018-12-09 15:40:00 84 /min [facility] Body temperature 2018-12-09 15:40:00 36.67 Sherly [facility] Respiratory rate 2018-12-09 15:40:00 18 /min [facility] Body weight 2018-12-09 15:40:00 57.788 kg [facility] Procedures Procedure Date / Time Performing Clinician Source Performed POCT URINALYSIS 2020-04-28 00:00:00 Maverick Desai [place] [facility] POCT TEST 2020-04-28 00:00:00 Maverick Desai [facility] DISABILITY/FMLA 2020-04-26 06:01:00 Doctor [facility] [facility] [place] <14 WEEKS US 2019-08-27 21:22:32 Epifanio Fagan [facility] [place], operated by [facility] GALV ONLY - VAGINAL 2019-08-27 20:48:00 Epifanio Fagan [facility] PATHOGENS BY DNA PROBE [facility] [place] [facility] ADC / LCC - DRUG SCREEN 2019-08-27 20:12:00 Epifanio Fagan [facility] CBC WITH DIFFERENTIAL 2019-08-27 20:08:00 Epifanio Fagan [facility] AGREEMENTS AUTHORIZATIONS 2019-08-26 05:01:00 Doctor Darron, [facility] AND IRREVOCABLE [facility] ASSIGNMENTS (FORM 2001) POCT TEST 2019-08-06 17:04:00 Va Torres [facility] POCT URINALYSIS 2019-08-06 15:41:00 Shahla Abarca [facility] REFERRAL- REQUEST/RESPONSE 2018-12-20 05:01:00 Doctor Darron , [facility] NO SHOW OR MISSED 2018-12-09 15:08:04 Doctor Darron, [facility] APPOINTMENT POLICY [facility] ACKNOWLEDGEMENT Encounters Start End Encounter Admission Attending Care Care Encounter Source Date/Time Date/Time Type Type Clinicians Facility Department ID 2020-06-08 2020-06-08 Outpatient Kraig ENGLE [facility] [id number] Univers 09:30:00 09:30:00 MITZI [id number] [facility] 2020-06-08 2020-06-08 Outpatient Kraig ENGLE [facility] [id number] Univers 09:30:00 09:30:00 MITZI ity of [facility] 2020-05-27 2020-05-27 Outpatient R KIRANLUISAJUDY, [facility] [id number] Univers 10:30:00 10:30:00 MITZI [id number] ity of [facility] 2020-05-27 2020-05-27 Outpatient R ONIEL [facility] [id number] Univers 10:30:00 10:30:00 MITZI ity [facility] 2020-04-28 2020-04-28 Urgent Provider, [facility] [place] 1.2.840.114 [id number] Univers 10:37:30 11:09:26 Care Maverick Desai [facility] 350.1.13.10 ity of [place] 4.2.7.2.686 Dharmesh as Professio [phone] Ri [address] Office Building [address] 2020-04-28 2020-04-28 Outpatient R [facility] [id number] Univers 10:40:00 10:40:00 [id number] ity of [facility] 2020-04-28 2020-04-28 Outpatient R ERNIE [facility] [id number] Univers 10:40:00 10:40:00 MAVERICK [facility] 2020-04-28 2020-04-28 Letter Doctor JONH 1.2.840.114 [id number] Univers 00:00:00 00:00:00 (Out) Unassigned, THAI 350.1.13.10 ity of [place] [facility] 4.2.7.2.686 Dharmesh as [phone] [facility] 044 [place] 2020-04-26 2020-04-26 Orders Doctor JONH 1.2.840.114 [id number] Univers 00:00:00 00:00:00 Only Unassigned, THAI 350.1.13.10 ity of [place] [facility] 4.2.7.2.686 Dharmesh as [phone] [facility] 009 [place] 2020-04-20 2020-04-20 Telephone Saravanan RUST Franko 1.2.840.114 [id number] Univers 00:00:00 00:00:00 Anna Moore 350.1.13.10 ity of [facility] 4[place]2.7.2.686 [facility] [phone] [address] 2020-01-20 2020-01-20 Office Coe, [facility] 1.2.840.114 [id number] Univers 11:05:56 11:39:42 Visit Anna Moore 350.1.13.10 ity of [facility] 4[place]2.7.2.686 [facility] [phone] [address] 2020-01-20 2020-01-20 Outpatient R SARAVANAN [facility] [id number] Univers 11:00:00 11:00:00 ANNA ity [facility] 2020-01-20 2020-01-20 Outpatient R SARAVANAN [facility] [id number] Univers 11:00:00 11:00:00 [facility]-01-08 2020-01-08 Outpatient R SARAVANAN [facility] [id number] Univers 08:00:00 08:00:00 ANNA [id number] ity [facility] 2020-01-08 2020-01-08 [facility] [id number] Univers 08:00:00 08:00:00 ANNA [facility] 2019-11-04 2019-11-04 Outpatient R [facility] [id number] Univers 13:00:00 13:00:00 [id number] ity [facility] 2019-11-04 2019-11-04 Outpatient R [facility] [id number] Univers 13:00:00 13:00:00 ity [facility] 2019-10-01 2019-10-01 Outpatient R EPIFANIO FAGAN [facility] [id number] Univers 15:15:00 15:15:00 ity [facility] 2019-09-22 2019-09-22 Telemedici Mitzi Engle [place] 1.2.840 .114 [id number] Univers 15:45:00 16:00:00 ne Visit Epifanio Fagan 350.1.13.10 [place] [phone] Ri dical [address] 2019-09-22 2019-09-22 Outpatient R EPIFANIO FAGAN [facility] [id number] Univers 15:45:00 15:45:00 [id number] ity of [facility] 2019-09-22 2019-09-22 Outpatient R EPIFANIO FAGAN [facility] [id number] Univers 15:45:00 15:45:00 ity of [facility] 2019-09-04 2019-09-04 Telephone Epifanio Fagan [place] 1..840.114 [id number] Univers 00:00:00 00:00:00 Cam [place] 350.1.13.10 [place] [phone] Ri dical nal [address] [place] [address] 2019-08-29 2019-08-29 Telephone Epifanio Fagan [place] 1..840.114 [id number] Univers 00:00:00 00:00:00 Cam [place] 350.1.13.10 [place] [phone] Ri dical nal [address] [place] [address] 2019-08-28 2019-08-28 Outpatient R [facility] [id number] Univers 08:30:00 08:30:00 [id number] ity of [facility] 2019-08-28 2019-08-28 Outpatient R [facility] [id number] Univers 08:30:00 08:30:00 ity of [facility] 2019-08-28 2019-08-28 [facility] 1..800.174 [id number] Univers 00:00:00 00:00:00 Cam [place] 350.1.13.10 [place] [phone] Ri dical nal [address] [place] [address] 2019-08-28 2019-08-28 [facility] 1.2.655.424 [id number] Univers 00:00:00 00:00:00 Management Mitzi Martinez 350.1.13.10 [place] [phone] Ri dical nal [address] [place] [address] 2019-08-27 2019-08-27 Contracts Law Professor Pob, [facility] [place] 1.2.8 40.114 [id number] Univers 14:53:10 15:08:10 Visit Epifanio Fagan 350.1.13.10 [place] [phone] Ri dical nal [address] [facility] 2019-08-27 2019-08-27 [facility]patient [facility] [id number] Univers 11:00:00 11:00:00 [id number] ity of [facility] 2019-08-27 2019-08-27 Outpatient R [facility] [id number] Univers 11:00:00 11:00:00 ity [facility] 2019-08-27 2019-08-27 Telemedici [facility] 1.2.840.114 [id number] Univers 08:03:39 08:33:39 ne Visit Parish [place] 350.1.13.10 [place] [phone] Ri dical nal [address] [facility] 2019-08-26 2019-08-26 Contracts Law 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 2, Adc Lab [facility] 1.2.840.114 [id number] Univers 14:58:02 15:13:02 Visit Epifanio Fagan 350.1.13.10 [place] [phone] Ri dical [facility] 353 [facility] 2019-08-26 2019-08-26 Outpatient [facility] [id number] Univers 14:45:00 14:45:00 [id number] ity of [facility] 2019-08-26 2019-08-26 Outpatient R [facility] [id number] Univers 14:45:00 14:45:00 ity [facility] 2019-08-26 2019-08-26 Nurse JONH Gibbons 1.2.840.114 [id number] Univers 00:00:00 00:00:00 Triage Senait ANDRE 350.1.13.10 ity of [facility] 4.2.7.2.686 Dharmesh as [phone] [address] 2019-08-26 2019-08-26 Nurse JONH Gibbons 1.2.840.114 [id number] Univers 00:00:00 00:00:00 Triage Senait ANDRE 350.1.13.10 ity of HOSPITAL 4.2.7.2.686 Dharmesh as [phone] [address] 2019-08-26 2019-08-26 Telephone PcpJONH 1.2.131.423 [id number] Univers 00:00:00 00:00:00 Patient THAI 350.1.13.10 it y of [place] [facility]OSP[place] 4[place].7.2.[place] [facility] [phone] [address] 2019-08-26 2019-08-26 Telephone Oniel INWADE 1.2.840.114 [id number] Univers 00:00:00 00:00:00 Mitzi Martinez 350.1.13.10 [place] [phone] Ri dical nal [address] [place] [address] 2019-08-26 2019-08-26 Orders Doctor JONH 1.2.840.114 [id number] Univers 00:00:00 00:00:00 Only Unassigned, THAI 350.1.13.10 ity of [place] [facility] 4.2.7.2.686 Dharmesh as [phone] [address] 2019-08-11 2019-08-11 Outpatient R ONIEL [facility] [id number] Univers 10:30:00 10:30:00 MITZI [id number] ity [facility] 2019-08-11 2019-08-11 Outpatient R ONIEL [facility] [id number] Univers 10:30:00 10:30:00 MITZI chavis [facility] 2019-08-11 2019-08-11 Telemedici Oniel [place] 1.2.840.114 [id number] Univers 08:17:42 08:47:42 ne Visit Mitzi Martinez 350.1.13.10 [place] [phone] Ri dical nal [address] [place] [address] 2019-08-06 2019-08-06 Urgent Provider, [facility] 1.2.840.114 [id number] Univers 10:08:20 12:10:21 Care Shashi Best [facility] 350.1.13.10 ity of Surgical 4.2.7.2.686 Dharmesh as Specialti [phone] Ri dical es [address] [place] 2019-08-06 2019-08-06 Outpatient R [facility] [id number] Univers 10:20:00 10:20:00 [id number] ity of [facility] 2019-08-06 2019-08-06 Outpatient R [facility] [id number] Univers 10:15:00 10:15:00 ity of [facility] 2019-08-05 2019-08-05 [facility] 1.2.840.114 [id number] Univers 00:00:00 00:00:00 Anna Moore 350.1.13.10 ity of [place] 4[place]2.7.2.686 [facility] [phone] [address] 2019-07-21 2019-07-21 Outpatient R SARAVANAN [facility] [id number] Univers 10:20:00 10:20:00 [facility] 2019-07-21 2019-07-21 [facility] [id number] Univers 10:20:00 10:20:00 [facility] 2018-12-20 2018-12-20 Office de [facility] [id number] [id number] Univers 07:58:50 08:18:53 Visit Oscar De León 350.1.13.10 ity of [place] [facility] 4[place]2.7.2.686 [facility] [phone] [address] 2018-12-20 2018-12-20 Telephone de [facility] 1.2.840.114 [id number] Univers 00:00:00 00:00:00 Oscar De León 350.1.13.10 ity of [place] [facility] 4[place]2.7.2.686 [facility] [phone] [address] 2018-12-20 2018-12-20 Orders Doctor JONH 1.2.840.114 [id number] Univers 00:00:00 00:00:00 Only Unassigned, THAI 350.1.13.10 ity of [place] [facility] 4.2.7.2.686 Dharmesh as [phone] [address] 2018-12-11 2018-12-11 Case Epifanio Fagan [facility] 1.2.007.502 [id number] Univers 00:00:00 00:00:00 Management Parish Martinez 350.1.13.10 [place] [phone] Ri dical nal [address] [place] [address] 2018-12-09 2018-12-09 Nurse Nurse, [facility] 1.2.840.114 [id number] Univers 10:07:40 10:55:19 Visit Epifanio Fagan Parish Juan 350.1.13.10 [place] [phone] Ri dical nal [address] [place] [address] 2018-12-09 2018-12-09 Orders Doctor JONH 1.2.840.114 [id number] Univers 00:00:00 00:00:00 Only Unassigned, THAI 350.1.13.10 ity of [place] [facility] 4.2.7.2.686 Dharmesh as [phone] [address] Results Test Description Test Time Test Comments Results Result Comments Source POCT URINALYSIS W SPECIFIC GRAVITY 2020-04-28 16:56:00 Test Item Value Reference Range Interpretation Comme nts POCT U SP GRAV (test code = 1.000 mg/dl 1.005-1.025 A 3255) POCT PH U (test code = 3254) 8 mg/dl 5-8 POCT U LEUK EST (test code = + Negative - Negative 3263) POCT U NIT (test code = 3262) neg Negative - Negative POCT U PROT (test code = 3259) trace Negative - Negative POCT U GLU (test code = 3256) neg Negative - Negative POCT U KETONE (test code = +++ Negative - Negative 3258) POCT U UROBILI (test code = 4 mg/dl 0.2-1 A 3260) POCT U BILI (test code = 3261) ++ Negative - Negative POCT U BLD (test code = 3257) Negative - Negative POCT U COLOR (test code = 3266) reji POCT U APPEAR (test code = cloudy 3267) MICHAEL (test code = MICHAEL) accurate development and interpretation of all internal controls Lab Interpretation (test code = Abnormal 16835-9) [facility] [id number] 16:53:00 Test Item Value Reference Range Interpretation Comments POCT PREG (test code = Negative 1605) On board controls Yes acceptable with C Line (test code = 3574) POCT PREG LOT # (test code = 3575) POCT PREG TEST DATE (test code = 3576) MICHAEL (test code = MICHAEL) accurate development and interpretation of all internal controls Lab Interpretation Normal (test code = 13101-6) [facility] - [facility]AL [facility]OGENS BY DNA PROBE 2019-08-28 13:41:00 Test Item Value Reference Range Interpretation Comments Trichomonas vaginalis Negative Negative (test code = 5447692064) Gardnerella vaginalis Positive Negative A The pr esence of (test code = 3583817753) Gar dnerella vaginalis although sugges tive, is not diagnost ic of Bacterial Vagin osis. Lorrie species (test Negative Negative code = 4770279501) Lab Interpretation (test Abnormal code = 83058-3) [facility]<14 WEEKS US [id number] 21:23:52Limited USG for dating as unsure LMP: ?Single live IUP measured 10 1/7 weeks. ?Will date by this ultrasound unless clinically indicated otherwise Epifanio Fagan MD ?08/27/2019 ?4:23 [facility] - DRUG SCREEN [id number] 20:45:00 Test Item Value Reference Range Interpretation Comments BENZO U (test code = Negative Negative 9742933946) RONI U (test code = Negative Negative 3483820641) AMPHET (test code = Negative Negative 7938213175) THC (test code = Negative Negative 3932740031) METHADONE (test code = Negative Negative 5512039061) Meth U (test code = Negative Negative 3967023773) OPIATES (test code = Negative Negative 2322418071) Cocaine Metabolite (test Negative Negative code = 9963474753) PROPOXY (test code = Negative Negative 6349211323) Tric U (test code = Negative Negative 4139238648) PCP (test code = Negative Negative 5616303099) OXYCOD (test code = Negative Negative 8248552013) MICHAEL (test code = MICHAEL) Urine Drug Cutoff Ranges Benzodiazepines: ? ? 150 ng/mLBarbiturates: ?200 ng/mLAmphetamine: ? 500 ng/mLCannabinoids: ?50 ?ng/mLMethadone: ? 200 ng/mLMethamphetamine: ? ? 500 ng/mL Opiates: ? 100 ng/mL or 2000 ng/mLCocaine: ? 150 ng/mLPropoxyphene: ?300 ng/mLTricyclics: ?300 ng/mLOxycodone: ? 100 ng/mLPCP: ? 25 ?ng/mL The results are to be used only for medical (i.e., treatment) purposes. Unconfirmed screening results must not be used for non-medical purposes (e.g., employment testing, legal testing). Lab Interpretation (test Normal code = 11697-6) [facility] WITH [id number] 20:20:00 Test Item Value Reference Range Interpretation Comments WBC (test code = See_Comment [Automated 2890-2) message] The sy stem which generated this result transmitted reference range : 4.50 - 13.50 10*3/?L. The reference range was not used to interpret this result as normal/abnormal . RBC (test code = See_Comment [Automated 811-8) message] The sy stem which generated this result transmitted reference range : 4.10 - 5.10 10*6/?L. The reference range was not used to interpret this result as normal/abnormal . HGB (test code = 12.8 g/dL 16 718-7) HCT (test code = 38.0 % 36-45 4544-3) MCV (test code = 83.5 fL 78-95 787-2) MCH (test code = 28.1 pg 26-32 785-6) MCHC (test code = 33.7 g/dL 32-36 786-4) RDW-SD (test code = 43.5 fL 38.5-49 92433-6) RDW-CV (test code = 14.3 % 11.5-14 H 788-0) PLT (test code = See_Comment [Automated 777-3) message] The sy stem which generated this result transmitted reference range : 135 - 361 10*3/ ?L. The reference r fredis was not used to interpret this result as normal/abnormal . MPV (test code = 9.8 fL 9.4-13.3 39152-6) NRBC/100 WBC (test See_Comment [Automat ed code = 1347501747) message] The system which generated this result transmitted reference range : 0.0 - 10.0 /100 WBCs. The refer ence range was not u sed to interpret th is result as normal/abnormal . NRBC x10^3 (test code <0.01 See_Comment [Auto mated = 3495544723) message] The s ystem which generated this result transmitted reference range : 10*3/?L. The reference range was not used to interpret this result as normal/abnormal . GRAN MAT (NEUT) % 77.3 % (test code = 770-8) IMM GRAN % (test code 0.30 % = 4264993625) LYMPH % (test code = 16.8 % 736-9) MONO % (test code = 4.8 % 5905-5) EOS % (test code = 0.6 % 713-8) BASO % (test code = 0.2 % 706-2) GRAN MAT x10^3(ANC) 7.16 10*3/uL 1.5-10.3 (test code = 7889285154) IMM GRAN x10^3 (test 0.03 10*3/uL 0-0.06 code = 3550431002) LYMPH x10^3 (test code 1.56 10*3/uL 0.7-7.4 = 731-0) MONO x10^3 (test code 0.45 10*3/uL 0-0.5 = 742-7) EOS x10^3 (test code = 0.06 10*3/uL 0-0.4 711-2) BASO x10^3 (test code <0.03 0-0.1 = 704-7) Lab Interpretation Abnormal (test code = 76344-9) [facility] [id number] 17:10:00 Test Item Value Reference Range Interpretation Comments POCT PREG (test code = 1605) Positive On board controls acceptable with Yes C Line (test code = 3574) POCT PREG LOT # (test code = 3575) [id number] POCT PREG TEST DATE (test 11-10-2020 code = 3576) Lab Interpretation (test code = Abnormal 26912-4) [facility] [id number] 17:10:00 Test Item Value Reference Range Interpretation Comments POCT PREG (test code = 1605) Positive On board controls acceptable with Yes C Line (test code = 3574) POCT PREG LOT # (test code = 3575) [id number] POCT PREG TEST DATE (test 11-10-2020 code = 3576) Lab Interpretation (test code = Abnormal 25779-1) [facility] URINALYSIS W SPECIFIC [id number] 15:47:00 Test Item Value Reference Range Interpretation Comments POCT U SP GRAV (test code = 1.020 mg/dl 1.005-1.025 3255) POCT PH U (test code = 3254) 5 mg/dl 5-8 POCT U LEUK EST (test code = TRACE Negative - Negative 3263) POCT U NIT (test code = 3262) NEGATIVE Negative - Negative POCT U PROT (test code = TRACE Negative - Negative 3259) POCT U GLU (test code = 3256) NEGATIVE Negative - Negative POCT U KETONE (test code = NEGATIVE Negative - Negative 3258) POCT U UROBILI (test code = NORMAL 0.2-1 3260) POCT U BILI (test code = NEGATIVE Negative - Negative 3261) POCT U BLD (test code = 3257) Negative - Negative POCT U COLOR (test code = DARK YELLOW 3266) POCT U APPEAR (test code = CLOUDY 3267) Lab Interpretation (test code Abnormal = 88149-4) [facility] URINALYSIS W SPECIFIC [id number] 15:47:00 Test Item Value Reference Range Interpretation Comments POCT U SP GRAV (test code = 1.020 mg/dl 1.005-1.025 3255) POCT PH U (test code = 3254) 5 mg/dl 5-8 POCT U LEUK EST (test code = TRACE Negative - Negative 3263) POCT U NIT (test code = 3262) NEGATIVE Negative - Negative POCT U PROT (test code = TRACE Negative - Negative 3259) POCT U GLU (test code = 3256) NEGATIVE Negative - Negative POCT U KETONE (test code = NEGATIVE Negative - Negative 3258) POCT U UROBILI (test code = NORMAL 0.2-1 3260) POCT U BILI (test code = NEGATIVE Negative - Negative 3261) POCT U BLD (test code = 3257) Negative - Negative POCT U COLOR (test code = DARK YELLOW 3266) POCT U APPEAR (test code = CLOUDY 3267) Lab Interpretation (test code Abnormal = 76563-1) [facility] URINALYSIS W SPECIFIC [id number] 15:47:00 Test Item Value Reference Range Interpretation Comments POCT U SP GRAV (test code = 1.020 mg/dl 1.005-1.025 3255) POCT PH U (test code = 3254) 5 mg/dl 5-8 POCT U LEUK EST (test code = TRACE Negative - Negative 3263) POCT U NIT (test code = 3262) NEGATIVE Negative - Negative POCT U PROT (test code = TRACE Negative - Negative 3259) POCT U GLU (test code = 3256) NEGATIVE Negative - Negative POCT U KETONE (test code = NEGATIVE Negative - Negative 3258) POCT U UROBILI (test code = NORMAL 0.2-1 3260) POCT U BILI (test code = NEGATIVE Negative - Negative 3261) POCT U BLD (test code = 3257) Negative - Negative POCT U COLOR (test code = DARK YELLOW 3266) POCT U APPEAR (test code = CLOUDY 3267) Lab Interpretation (test code Abnormal = 79823-8) [facility] URINALYSIS W SPECIFIC [id number] 15:47:00 Test Item Value Reference Range Interpretation Comments POCT U SP GRAV (test code = 1.020 mg/dl 1.005-1.025 3255) POCT PH U (test code = 3254) 5 mg/dl 5-8 POCT U LEUK EST (test code = TRACE Negative - Negative 3263) POCT U NIT (test code = 3262) NEGATIVE Negative - Negative POCT U PROT (test code = TRACE Negative - Negative 3259) POCT U GLU (test code = 3256) NEGATIVE Negative - Negative POCT U KETONE (test code = NEGATIVE Negative - Negative 3258) POCT U UROBILI (test code = NORMAL 0.2-1 3260) POCT U BILI (test code = NEGATIVE Negative - Negative 3261) POCT U BLD (test code = 3257) Negative - Negative POCT U COLOR (test code = DARK YELLOW 3266) POCT U APPEAR (test code = CLOUDY 3267) Lab Interpretation (test code Abnormal = 68896-6) [facility] URINALYSIS W SPECIFIC [id number] 15:47:00 Test Item Value Reference Range Interpretation Comments POCT U SP GRAV (test code = 1.020 mg/dl 1.005-1.025 3255) POCT PH U (test code = 3254) 5 mg/dl 5-8 POCT U LEUK EST (test code = TRACE Negative - Negative 3263) POCT U NIT (test code = 3262) NEGATIVE Negative - Negative POCT U PROT (test code = TRACE Negative - Negative 3259) POCT U GLU (test code = 3256) NEGATIVE Negative - Negative POCT U KETONE (test code = NEGATIVE Negative - Negative 3258) POCT U UROBILI (test code = NORMAL 0.2-1 3260) POCT U BILI (test code = NEGATIVE Negative - Negative 3261) POCT U BLD (test code = 3257) Negative - Negative POCT U COLOR (test code = DARK YELLOW 3266) POCT U APPEAR (test code = CLOUDY 3267) Lab Interpretation (test code Abnormal = 97943-5) [facility] URINALYSIS W SPECIFIC [id number] 15:47:00 Test Item Value Reference Range Interpretation Comments POCT U SP GRAV (test code = 1.020 mg/dl 1.005-1.025 3255) POCT PH U (test code = 3254) 5 mg/dl 5-8 POCT U LEUK EST (test code = TRACE Negative - Negative 3263) POCT U NIT (test code = 3262) NEGATIVE Negative - Negative POCT U PROT (test code = TRACE Negative - Negative 325) POCT U GLU (test code = 3256) NEGATIVE Negative - Negative POCT U KETONE (test code = NEGATIVE Negative - Negative 3258) POCT U UROBILI (test code = NORMAL 0.2-1 3260) POCT U BILI (test code = NEGATIVE Negative - Negative 326) POCT U BLD (test code = 3257) Negative - Negative POCT U COLOR (test code = DARK YELLOW 3266) POCT U APPEAR (test code = CLOUDY 326) Lab Interpretation (test code Abnormal = 68853-8) [facility]
--- NOTE | 2021-04-09 10:01 | ER ---
Nurse's Notes [facility] Name: Demi Lara Age: 20 yrs Sex: Female : 2000 Arrival Date: 04/09/2021 Time: 08:43 Bed 12 Private MD: Diagnosis: Cellulitis of toe Presentation: 04/09 09:02 Chief complaint: Patient states: right great toe is red and swollen around toenail , iw feels numb, started a month ago but it wasn't bad. Coronavirus screen: At this time, the client does not indicate any symptoms associated with coronavirus-19. Ebola Screen: Patient negative for fever greater than or equal to 101.5 degrees Fahrenheit, and additional compatible Ebola Virus Disease symptoms Patient denies exposure to infectious person. Patient denies travel to an Ebola-affected area in the 21 days before illness onset. Initial Sepsis Screen: Does the patient meet any 2 criteria? No. Patient's initial sepsis screen is negative. Does the patient have a suspected source of infection? No. Patient's initial sepsis screen is negative. Risk Assessment: Do you want to hurt yourself or someone else? Patient reports no desire to harm self or others. Onset of symptoms was February 2021. 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 - Social history:: Smoking status: Reported history of juuling and/or vaping. - Family history:: not pertinent. Screenin:06 Abuse screen: Denies threats or abuse. Denies injuries from another. Nutritional iw screening: No deficits noted. Tuberculosis screening: No symptoms or risk factors identified. Fall Risk None identified. Assessment: 09:05 General: Appears in no apparent distress. Behavior is calm, cooperative. Pain: iw Complains of pain in right first toe and Right first toenail. Neuro: Level of Consciousness is awake, alert, obeys commands, Oriented to person, place, time, situation, Moves all extremities. Full function. Respiratory: Respiratory effort is even, unlabored, Respiratory pattern is regular. Vital Signs: 09:02 BP 125 / 72; Pulse 98; Resp 16; Pulse Ox 98% on R/A; Weight 55.34 kg; Height 5 ft. 3 iw in. (160.02 cm); Pain 8/10; 09:02 Body Mass Index 21.61 (55.34 kg, 160.02 cm) iw ED Course: 08:43 Patient arrived in ED. as 09:04 Triage completed. iw 09:05 Lilia Montiel, RN is Primary Nurse. iw 09:05 Arm band placed on. iw 09:05 Patient has correct armband on for positive identification. iw 09:07 Pablo Fisher MD is Attending Physician. everardo 09:59 Kameron Dewitt DPM is Referral Physician. everardo 10:32 No provider procedures requiring assistance completed. Patient did not have IV access iw during this emergency room visit. Administered Medications: 10:28 Drug: Bactroban (mupirocin) Ointment 2 % 1 application Route: Topical; Site: affected iw area; 10:28 Drug: Bactrim (trimethoprim-sulfamethoxazole) (160 mg-800 mg (DS) 1 tablet Route: PO; iw 10:45 Follow up: Response: No adverse reaction iw 10:28 Drug: Doxycycline 200 mg Route: PO; iw 10:40 Follow up: Response: No adverse reaction iw Outcome: 10:00 Discharge ordered by . everardo 10:32 Discharged to home ambulatory, with family. iw 10:32 Condition: good 10:32 Discharge instructions given to patient, Instructed on discharge instructions, follow up and referral plans. medication usage, Demonstrated understanding of instructions, follow-up care, medications, Prescriptions given X 2. 10:33 Patient left the ED. iw Signatures: Pablo Fisher MD MD cha Martinez, Amelia as Lilia Montiel, RN RN iw
--- NOTE | 2021-04-09 10:01 | EDPHYS ---
Physician Documentation [facility] Name: Demi Lara Age: 20 yrs Sex: Female : 2000 Arrival Date: 04/09/2021 Time: 08:43 Bed 12 Private MD: TING Physician Pablo Fisher HPI: 04/09 09:55 This 20 yrs old Female presents to ER via Ambulatory with complaints of Toe Pain- eevrardo redness/swelling. 09:55 The patient presents with pain, swelling, tenderness. The complaints affect the left everardo foot, medial aspect of left toes and Left first toenail. Context: The problem was sustained at an unknown location, resulted from an unknown cause. Onset: The symptoms/episode began/occurred 1 week(s) ago. Modifying factors: The symptoms are alleviated by nothing, the symptoms are aggravated by movement. Associated signs and symptoms: The patient has no apparent associated signs or symptoms. Severity of symptoms: At their worst the symptoms were mild, in the emergency department the symptoms are unchanged. The patient has not experienced similar symptoms in the past. TRANSPORTATION AID: 09:05 LMP 02/2021 iw Historical: - Allergies: 09:04 NKDA; iw - Home Meds: 09:04 None [Active]; iw - PMHx: 09:04 ADD/ADHD; Anxiety; Depression; iw - PSHx: 09:04 None; iw - Immunization history:: Client reports having NOT received the Covid vaccine. - Social history:: Smoking status: Reported history of juuling and/or vaping. - Family history:: not pertinent. ROS: 09:55 Constitutional: Negative for fever, chills, and weight loss, Eyes: Negative for injury, everardo pain, redness, and discharge, ENT: Negative for injury, pain, and discharge, Neck: Negative for injury, pain, and swelling, Cardiovascular: Negative for chest pain, palpitations, and edema, Respiratory: Negative for shortness of breath, cough, wheezing, and pleuritic chest pain, Abdomen/GI: Negative for abdominal pain, nausea, vomiting, diarrhea, and constipation, Back: Negative for injury and pain, : Negative for injury, bleeding, discharge, and swelling, Skin: Negative for injury, rash, and discoloration, Neuro: Negative for headache, weakness, numbness, tingling, and seizure, Psych: Negative for depression, anxiety, suicide ideation, homicidal ideation, and hallucinations, Allergy/Immunology: Negative for hives, rash, and allergies, Endocrine: Negative for neck swelling, polydipsia, polyuria, polyphagia, and marked weight changes, Hematologic/Lymphatic: Negative for swollen nodes, abnormal bleeding, and unusual bruising. 09:55 MS/extremity: Positive for pain, tenderness, of the Left first toenail. Exam: 09:55 Constitutional: This is a well developed, well nourished patient who is awake, alert, everardo and in no acute distress. Head/Face: Normocephalic, atraumatic. Eyes: Pupils equal round and reactive to light, extra-ocular motions intact. Lids and lashes normal. Conjunctiva and sclera are non-icteric and not injected. Cornea within normal limits. Periorbital areas with no swelling, redness, or edema. ENT: Nares patent. No nasal discharge, no septal abnormalities noted. Tympanic membranes are normal and external auditory canals are clear. Oropharynx with no redness, swelling, or masses, exudates, or evidence of obstruction, uvula midline. Mucous membranes moist. Neck: Trachea midline, no thyromegaly or masses palpated, and no cervical lymphadenopathy. Supple, full range of motion without nuchal rigidity, or vertebral point tenderness. No Meningismus. Chest/axilla: Normal chest wall appearance and motion. Nontender with no deformity. No lesions are appreciated. Cardiovascular: Regular rate and rhythm with a normal S1 and S2. No gallops, murmurs, or rubs. Normal PMI, no JVD. No pulse deficits. Respiratory: Lungs have equal breath sounds bilaterally, clear to auscultation and percussion. No rales, rhonchi or wheezes noted. No increased work of breathing, no retractions or nasal flaring. Abdomen/GI: Soft, non-tender, with normal bowel sounds. No distension or tympany. No guarding or rebound. No evidence of tenderness throughout. Back: No spinal tenderness. No costovertebral tenderness. Full range of motion. Neuro: Awake and alert, GCS 15, oriented to person, place, time, and situation. Cranial nerves II-XII grossly intact. Motor strength 5/5 in all extremities. Sensory grossly intact. Cerebellar exam normal. Normal gait. Psych: Awake, alert, with orientation to person, place and time. Behavior, mood, and affect are within normal limits. 09:55 Skin: Appearance: Color: normal in color, Temperature: normal temperature, Moisture: normal moisture, petechiae, not noted, ecchymosis, not noted, flushing, not noted, cellulitis, that is mild, FBS 87 MG/DL. Vital Signs: 09:02 BP 125 / 72; Pulse 98; Resp 16; Pulse Ox 98% on R/A; Weight 55.34 kg; Height 5 ft. 3 iw in. (160.02 cm); Pain 12/21; 09:02 Body Mass Index 21.61 (55.34 kg, 160.02 cm) iw MDM: 09:07 Patient medically screened. [facility] 09:58 Differential diagnosis: fracture, sprain, gout, cellulitis. Data reviewed: vital signs, [facility] nurses notes. Data interpreted: school lunch monitor: not applicable for this patient encounter. rate is 98 beats/min, rhythm is regular, Pulse oximetry: on room air. Counseling: I had a detailed discussion with the patient and/or guardian regarding: the historical points, exam findings, and any diagnostic results supporting the discharge/admit diagnosis, the need for outpatient follow up, for definitive care, a family practitioner, a manager maritime. 04/09 10:00 Order name: Glucose, Ancillary Testing [facility] 04/09 09:54 Order name: Blood Glucose Level; Complete Time: 10:05 [facility] 04/09 09:54 Order name: Urine Dipstick-Ancillary (obtain specimen) [facility] 04/09 09:54 Order name: Urine Test (obtain specimen) [facility] Administered Medications: 10:28 Drug: Bactroban (mupirocin) Ointment 2 % 1 application Route: Topical; Site: affected iw area; 10:28 Drug: Bactrim (trimethoprim-sulfamethoxazole) (160 mg-800 mg (DS) 1 tablet Route: PO; iw 10:45 Follow up: Response: No adverse reaction iw 10:28 Drug: Doxycycline 200 mg Route: PO; iw 10:40 Follow up: Response: No adverse reaction iw Disposition Summary: 04/09/21 10:00 Discharge Ordered Location: Home everardo Problem: new everardo Symptoms: have improved everardo Condition: Stable everardo Diagnosis - Cellulitis of toe everardo Followup: everardo - With: Private Physician - When: 2 - 3 days - Reason: Recheck today's complaints, Re-evaluation by your physician Followup: everardo - With: Kameron Dewitt DPM - When: 2 - 3 days - Reason: Recheck today's complaints, Re-evaluation by your physician Discharge Instructions: - Discharge Summary Sheet everardo - Cellulitis, Adult everardo - Ingrown Toenail everardo - Cellulitis, Adult, [id number] [facility] Forms: - Medication Reconciliation Form everardo - Thank You Letter everardo - Antibiotic Education everardo - Prescription Opioid Use [facility] - Work release form iw Prescriptions: - Centany 2 % Topical ointment - apply 1 application by TOPICAL route 3 times per day; 15 gram; Refills: 0, [facility] Product Selection Permitted - Doxycycline Hyclate 100 mg Oral Tablet - take 1 tablet by ORAL route every 12 hours; 20 tablet; Refills: 0, Product everardo Selection Permitted - Bactrim DS 800-160 mg Oral Tablet - take 1 tablet by ORAL route every 12 hours for 10 days; 20 tablet; Refills: 0, [facility] Product Selection Permitted Signatures: Dispatcher [employer] Pablo Tavares MD MD cha Williams, Irene RN RN iw
[2021-04-09] MEDS ORDERED: SMZ./TMP. 800/160 MG TABLET ONE (10:21)
[2021-04-09] MEDS ORDERED: DOXYCYCLINE 100 MG CAP PO ONE (10:21)
[2021-04-09] MEDS ORDERED: MUPIROCIN 2% OINT 22GM TUBE TOP ONE (10:22)
[2021-04-09 10:38] VITALS: BP 125/72; O2SAT 98
== END 2021-04-09 10:33 | disposition home or self-care (01) ==
LOC: ER 08:41
DX: L03.032 Cellulitis of left toe (principal)
CPT/HCPCS: 82947; 99283